=== PATIENT | female | born 1975 | race African-American/Black ===

== ENCOUNTER 2024-06-14 13:07 | Outpatient (CLI) | payer OTHER ==
[2024-06-14 13:45] LABS: Hematocrit 38.5 % (34.9-44.5); Hemoglobin 12.7 g/dL (12.0-15.5); Mean Corpuscular Hemoglobin 30.5 pg (27.0-33.0); Mean Corpuscular Volume 92.3 fL (81.6-98.3); Mean Platelet Volume 9.1 fL (7.4-10.4); Platelet Count 372 10x3/uL (150-450); RBC Distribution Width 12.7 % (11.5-14.5); Red Blood Cell (RBC) Count 4.17 10x6/uL (3.90-5.03); White Blood Cell (WBC) Count 9.2 10x3/uL (3.5-10.5)
[2024-06-14 14:10] LABS: Anion Gap 13 mmol/L (10-20); BUN (Urea Nitrogen) 13 mg/dL (7.0-18.7); Calc. Creatinine Clearance 0 mL/min (70-130); Calcium 9.4 mg/dL (7.8-10.44); Carbon Dioxide 25 mmol/L (22-29); Chloride 105 mmol/L (98-107); Estimated GFR 75; Glucose 105 mg/dL (70-105); Potassium 4.1 mmol/L (3.5-5.1); Sodium 139 mmol/L (136-145)
== END 2024-06-14 13:08 | disposition home or self-care (01) ==
LOC: CSHLAB 13:07
PROVIDERS: ATTEND Pain Medicine Pain Medicine
DX: Z01.818 Encounter for other preprocedural examination (principal); D24.1 Benign neoplasm of right breast
CPT/HCPCS: 80048; 85027; 93005; 93010

== ENCOUNTER 2024-06-17 06:05 | Day surgery (SDC) | payer OTHER ==
[2024-06-14 13:29] VITALS: BMI 37.0
[2024-06-17] MEDS ORDERED: Isosulfan Blue 50 MG/5 ML VIAL ONE (06:38)
[2024-06-17] MEDS ORDERED: Bupivacaine/Epinephrine 0.25% 30 ML VIAL ONE (06:38)
[2024-06-17] MEDS ORDERED: CEFAZOLIN 2 GM VIAL ONE (07:11)
[2024-06-17] MEDS ORDERED: Lidocaine 1% PF 5 ML VIAL ONE (07:11)
[2024-06-17] MEDS ORDERED: Ondansetron PF 4 MG/2 ML Vial ONE (07:11)
[2024-06-17] MEDS ORDERED: fentaNYL 50 mcg/mL 1 mL Vial ONE ×3 (07:11→08:24)
[2024-06-17] MEDS ORDERED: Dexamethasone 4 mg/ml Vial ONE (07:11)
[2024-06-17] MEDS ORDERED: PROPOFOL 20 ML ONE (07:11)
[2024-06-17] MEDS ORDERED: Midazolam HCl 2 mg/2 ml Vial ONE (07:11)
[2024-06-17] MEDS ORDERED: PHENYLEPHRINE-NS 100 MCG/ML 10 ML SYRINGE ONE (08:02)
[2024-06-17] MEDS ORDERED: HYDROcodone/Acetaminophen 5/325 mg Tablet ONE (09:09)
== END 2024-06-17 09:40 | disposition home or self-care (01) ==
LOC: CSHSDC 06:05
PROVIDERS: ATTEND Surgery
PROC: 0HBT0ZZ Excision of Right Breast, Open Approach (ICD-10-PCS; principal; 2024-06-17)
DX: N60.81 Other benign mammary dysplasias of right breast (principal); N60.21 Fibroadenosis of right breast; I10 Essential (primary) hypertension; Z79.899 Other long term (current) drug therapy
CPT/HCPCS: 88305; J1100; J2250; J2405; J2704; J3010; Q9968